=== PATIENT | female | born 1930 | race Caucasian/White ===

== ENCOUNTER → 2016-04-06 | Outpatient (CLI) | payer MEDICARE ==
[2015-01-03 15:00] VITALS: BP 110/63
[~2016-04-06] MED LIST: ASPI81TA2 PO; CANA100T PO; FURO-68 PO; GABA-586 PO; LEVO50TA PO; LISI-377 PO; METO25TA2 PO; SIMV40TA PO; WARF3TAB7 PO
--- NOTE | 2016-04-06 14:32 | KCIC ---
PROCEDURE MR of the right foot HISTORY Right toe cellulitis. Nonhealing ulcer at the distal 3rd toe for over 2 weeks. Diabetic. COMPARISON Radiographs from March 22. No prior MRI. Technique: Standard noncontrast images FINDINGS There is some soft tissue nodularity at the 3rd toe, particularly superiorly, laterally and inferiorly, are mostly surrounding the middle phalanx. This has mostly to low to intermediate T1 signal and intermediate T2 signal. This broadly contacts the middle and distal phalanges which are narrowed and irregular. The appearance suggests chronic external pressure erosion. There is not much bone marrow edema. The overall appearance of these changes at the 3rd toe suggest a chronic process. If the patient is infected, certainly acute and/or chronic osteomyelitis is a possibility. The DIP joint itself is poorly defined and may be disrupted. Note there is similar soft tissue nodularity surrounding the 1st toe particularly surrounding the IP joint. These demonstrate a similar appearance with isointense T1 signal and isodose mildly hyperintense T2 signal. There is deformity and irregularity of the shaft and head of proximal phalanx and the base of the distal phalanx, again with a chronic appearance and possible rated 2 chronic external pressure erosion. There is some narrowing of the IP joint itself. Small effusion at the 1st MTP joint. There is no evidence of acute acute disruption of flexor or extensor tendons. No acute sesamoiditis. No abnormal soft tissue fluid collection or drainable abscess. Lisfranc ligament complex is intact as is the tarsometatarsal alignment. There are degenerative changes at the tarsometatarsal joints compatible with primary osteoarthritis. There is heterogeneous bone marrow signal within the base and proximal shaft of the 5th metatarsal small better defined area of low T1 signal at the subchondral base of the 1st metatarsal and a smaller similar focus in a subcortical location at the proximal medial shaft. These have a similar appearance is the phalangeal changes described of in terms of the MR appearance. Much smaller erosion or defect is seen at the distal cuneiforms. Similar as the toes, there is some soft tissue nodularity dorsal to the proximal 5th metatarsal as well as between the proximal 4th and 5th metatarsal. IMPRESSION 1. Soft tissue nodularity about the 3rd and 1st toes, with underlying bone destruction or erosion. Overall the appearance suggests a chronic duration. If there is clinical infection in these areas, than acute and/or chronic osteomyelitis is of leading concern. Otherwise this is nonspecific. Gout could be considered although note it would be unusual to spare the 1st MTP joint. Rheumatoid arthritis could be considered. 2. There is also evidence of some chronic appearing marrow infiltration, erosion or bone destruction at the proximal 5th metatarsal, with some mild soft tissue component along the superior and medial proximal shaft and base, likely of similar etiology as the abnormalities at the 1st and 3rd toes. Electronically signed by: Gerardo Herrera MD (Apr 06, 2016 14:31:28)
== END | disposition home or self-care (01) ==
LOC: KCIC MRI 09:56
PROVIDERS: ATTEND Family Medicine
DX: L03.031 Cellulitis of right toe (principal); E11.8 Type 2 diabetes mellitus with unspecified complications
CPT/HCPCS: 73718

== ENCOUNTER 2018-07-08 13:45 | Inpatient (IN) | payer MEDICARE ==
[~2018-07-08] VITALS: Ht 167.6 cm; Wt 81.7 kg
[~2018-07-08 13:45] MED LIST changes: +ASPI-630 PO; -ASPI81TA2 PO; -GABA-586 PO; +GABA300C18 PO; +WARF3TAB50 PO; -WARF3TAB7 PO
--- NOTE | 2018-07-08 16:05 | NUR ---
Pt arrived via stretcher with EMS. Assisted pt to bed. Completed admission assessment. Family at bedside. Call light within reach.
[2018-07-08] MEDS ORDERED: DEXTROSE 50% 25 GM / 50ML DISP.SYRIN. IV PRN (18:30)
[2018-07-08 19:00] VITALS: BP 152/83
[2018-07-08] MEDS ORDERED: ALLO100T PO (19:28)
[2018-07-08] MEDS ORDERED: LACT1CAP2 PO (19:28)
[2018-07-08] MEDS ORDERED: INSU100I13 SQ (19:28)
[2018-07-08] MEDS ORDERED: LATA7.5D OP (19:28)
[2018-07-08] MEDS ORDERED: METO-239 PO (19:28)
[2018-07-08] MEDS ORDERED: TIMO10DR5 EACHEYE (19:28)
[2018-07-08] MEDS ORDERED: LINA5TAB PO (19:28)
[2018-07-08] MEDS: IV NORMAL SALINE 1000ML BAG 1,000 ML IV SCH (19:51)
[2018-07-08] MEDS: MEROPENEM 500 MG in IV NORMAL SALINE 50ML 50 ML IV SCH (20:56)
[2018-07-08] MEDS: GABAPENTIN 300 MG CAPSULE. PO SCH (20:57)
[2018-07-08] MEDS: LACTOBACILLUS RHAMNOSUS GG 1 CAPSULE. PO SCH (20:57)
[2018-07-08] MEDS: ACETAMINOPHEN 325 MG TABLET. PO PRN (20:58)
[2018-07-08] MEDS: LATANOPROST 0.005% OPHTH SOLUTION 2.5ML BOTTLE. OU SCH (20:59)
[2018-07-08] MEDS: TIMOLOL 0.5% OPHTH SOLUTION 5ML BOTTLE. OU SCH ×2 (20:59→21:00)
[2018-07-08] MEDS: INSULIN GLARGINE 300 UNITS/3 ML INSULN.PEN. SQ SCH (21:13)
[2018-07-08 23:00] VITALS: BP 130/63
--- NOTE | 2018-07-09 01:28 | NUR ---
Purewick external catheter placed at this time, pt tolerated well and will continue to monitor.
[2018-07-09 03:00] VITALS: BP 149/84
[2018-07-09] MEDS: ACETAMINOPHEN 325 MG TABLET. PO PRN ×2 (05:49→21:12)
[2018-07-09] MEDS: LEVOTHYROXINE 50 MCG TABLET PO SCH (05:49)
[2018-07-09 07:00] VITALS: BP 132/74
[2018-07-09 07:52] LABS: BASO % 0 % (0-3); EOS # 0.2 x10^3/uL (0.0-0.7); EOS % 2 % (0-3); HEMATOCRIT 37.2 % (36.0-47.0); HEMOGLOBIN 12.1 g/dL (12.0-15.5); LYMPH # 1.2 x10^3/uL (1.0-4.8); LYMPH % 12 % (24-48); MEAN CORPUSCULAR HEMOGLOBIN 33 pg (25-35); MEAN CORPUSCULAR HGB CONC 32 g/dL (31-37); MEAN CORPUSCULAR VOLUME 101 fL (79-100); MONO # 1.2 x10^3/uL (0.0-1.1); MONO % 12 % (0-9); NEUT # 7.4 x10^3uL (1.8-7.7); NEUT % 74 % (31-73); PLATELET COUNT 222 x10^3/uL (140-400); RED BLOOD COUNT 3.68 x10^6/uL (3.50-5.40); RED CELL DISTRIBUTION WIDTH 14.3 % (11.5-14.5); WHITE BLOOD COUNT 10.1 x10^3/uL (4.0-11.0)
[2018-07-09 07:59] LABS: PROTHROMBIN TIME PATIENT 17.5 SEC (11.7-14.0)
[2018-07-09] MEDS: INSULIN LISPRO 300 UNITS/3 ML INSULN.PEN. SQ SCH ×3 (08:00→17:00)
[2018-07-09 08:22] LABS: ALBUMIN 1.5 g/dL (3.4-5.0); ALBUMIN/GLOBULIN RATIO 0.4 (1.0-1.7); CALCIUM 10.6 mg/dL (8.5-10.1); CREATININE 1.6 mg/dL (0.6-1.0); GFR 30.4; POTASSIUM 4.1 mmol/L (3.5-5.1); TOTAL BILIRUBIN 0.8 mg/dL (0.2-1.0); TOTAL PROTEIN 5.7 g/dL (6.4-8.2)
--- NOTE | 2018-07-09 09:46 | PDOC2 ---
CONSULT Date of Consult Date of Consult DATE: 07/09/18 TIME: 09:35 Reason for consultation: High calcium Consult: Hematology oncology, Dr. Chuck Judd History of present illness: The patient is an 88-year-old female, she was admitted for high calcium, labs were done elsewhere prior, appears this is chronic, worsened due to hyperparathyroidism, with associated parathyroid adenoma that has been on observation, it is moderate, to 10.6, however corrects to higher with low albumin, surgery has been consulted as well. Past medical history: Hyperparathyroid with parathyroid adenoma and hypercalcemia Diabetes mellitus 2 Coronary artery disease A. fib on warfarin Obesity Right bundle branch block Hypertension Hyperlipidemia Hip fracture Osteoporosis Hearing loss Vitamin D deficiency History of pneumonia Glaucoma Prior UTI Gout Past surgical history: Hysterectomy Left glaucoma surgery Colonoscopy Allergies: Penicillin and sulfa Medications: See attached list Social history: No tobacco or alcohol or drugs, lives with her daughter Family history: Diabetes, heart disease, stroke Review of systems: urinary incontinence, bruising, otherwise 10 point review of systems negative for me this am Physical exam: Vitals reviewed Gen.: Elderly female in no acute distress HEENT: mucous membranes moist, head normocephalic atraumatic Neck: Supple, no lymphadenopathy Lymph nodes: No palpable lymphadenopathy neck or axilla Lungs: Breathing comfortably, w/o respiratory distress Abdomen: Soft, nontender, nondistended Extremities: No cyanosis or signif edema Skin: No obvious rashes or skin breakdown on limited exam, bruising Neuro: Alert, sl speech latency Psych: Normal mood and affect Lab reviewed: White count 10.1, hemoglobin 12.1, platelets 222, MCV of 101 Parathyroid hormone elevated in December 2014 at 2.4 Rads reviewed: No recent imaging here, prior imaging showed right greater trochanter fracture in the past Case discussed with: Patient, records reviewed in [facility] and [facility] as available, including labs and radiology as available, please see note for summary details. Assessment and Plan: She is an 88-year-old female with hypercalcemia and hyperparathyroidism Hyperparathyroidism with prior parathyroid adenoma: General surgery consultation pending, would consider definitive therapy due to ongoing issues Hypercalcemia: If she does not receive surgery for hyperparathyroidism could consider IV bisphosphonate however that could result in long-term hypocalcemia if she gets surgery so we'll hold off at the moment, do not think significant wo rkup for cancer necessary at this point in time since she does have other causes for hypercalcemia however we will order an SPEP with KHURRAM due to slight macrocytosis and the hypercalcemia, if elevated levels of calcium persist after treatment of hyperparathyroidism could consider further workup as needed (i.e. ct scans) Knee arthritis: Ortho consult pending Urinary retention: Per others Disposition: After continued clinical improvement Thank you kindly for this consultation, and please don't hesitate to call with any further questions, I will be returning on Saturday but am available in the interim by phone as needed. Current Medications Current Medications Current Medications Sodium Chloride 1,000 ml @ 50 mls/hr Q20H IV Last administered on 07/08/18 19:51; Start 07/08/18 at 18:00 Dextrose (Dextrose 50%-Water Syringe) 12.5 gm PRN Q15MIN PRN IV SEE COMMENTS; Start 07/08/18 at 18:30 Allopurinol (Zyloprim) 100 mg DAILY PO ; Start 07/09/18 at 09:00 Gabapentin (Neurontin) 300 mg TID PO Last administered on 07/08/18at 20:57; Start 07/08/18 at 21:00 Insulin Glargine (Lantus) 20 units QHS SQ Last administered on 07/08/18at 21:13; Start 07/08/18 at 21:00 Linagliptin (Tradjenta) 5 mg DAILY PO ; Start 07/09/18 at 09:00 Metoprolol Succinate (Toprol Xl) 50 mg DAILY PO ; Start 07/09/18 at 09:00 Lactobacillus Rhamnosus (Culturelle) 1 cap BID PO Last administered on 07/08/18at 20:57; Start 07/08/18 at 21:00 Latanoprost (Xalatan) 1 drop QHS OU Last administered on 07/08/18 20:59; Start 07/08/18 at 21:00 Levothyroxine Sodium (Synthroid) 50 mcg DAILY06 PO Last administered on 07/09/18 05:49; Start 07/09/18 at 06:00 Simvastatin (Zocor) 40 mg DAILY PO ; Start 07/09/18 at 09:00 Timolol Maleate (Timoptic 0.5% Oph) 1 drop BID OU Last administered on 07/08/18 20:59; Start 07/08/18 at 20:45 Meropenem 500 mg/ Sodium Chloride 50 ml @ 100 mls/hr Q12HR IV Last administered on 07/08/18at 20:56; Start 07/08/18 at 21:00 Acetaminophen (Tylenol) 650 mg PRN Q4HRS PRN PO MILD PAIN / TEMP Last administered on 07/09/18at 05:49; Start 07/08/18 at 20:45 Insulin Human Lispro (HumaLOG) 0-5 UNITS TIDWMEALS SQ ; Start 07/09/18 at 08:00 Active Scripts Active Reported Metoprolol Succinate ( Xl ) (Metoprolol Succinate) 25 Mg Tab.er.24h 2 Tab PO DAILY Tradjenta (Linagliptin) 5 Mg Tablet 5 Mg PO DAILY Latanoprost 0.005% Eye Drop (Latanoprost/Pf) 7.5 Ml Drops 7.5 Ml OP QHS Acidophilus (Lactobacillus Acidophilus) 1 Each Capsule 1 Each PO BID Lantus Solostar (Insulin Glargine,Hum.rec.anlog) 100 Unit/1 Ml Insuln.pen 20 Unit SQ QHS Timoptic 0.5% (Timolol Maleate) 10 Ml Drops 1 Drop EACHEYE BID Allopurinol 100 Mg Tablet 1 Tab PO DAILY Warfarin Sodium 3 Mg Tablet 1 Tab PO DAILY Zocor (Simvastatin) 40 Mg Tablet 1 Tab PO DAILY Synthroid (Levothyroxine Sodium) 50 Mcg Tablet 1 Tab PO DAILY Gabapentin (Gabapentin) 300 Mg Capsule 1 Cap PO TID Allergies Allergies: Coded Allergies: Penicillins (Verified Allergy, Intermediate, 01/02/15) Sulfa (Sulfonamide Antibiotics) (Verified Allergy, Intermediate, 01/02/15) Vitals VITALS Vital Signs Date Time Temp Pulse Resp B/P (MAP) Pulse Ox O2 Delivery O2 Flow Rate FiO2 07/09/18 07:00 98.0 80 17 132/74 (93) 98 Room Air 98.0 Labs Labs Laboratory Tests Test 07/08/18 16:23 07/08/18 20:34 07/09/18 07:11 07/09/18 07:38 Glucose (Fingerstick) 191 mg/dL (70-99) 146 mg/dL (70-99) 65 mg/dL (70-99) White Blood Count 10.1 x10^3/uL (4.0-11.0) Red Blood Count 3.68 x10^6/uL (3.50-5.40) Hemoglobin 12.1 g/dL (12.0-15.5) Hematocrit 37.2 % (36.0-47.0) Mean Corpuscular Volume 101 fL (79-100) Mean Corpuscular Hemoglobin 33 pg (25-35) Mean Corpuscular Hemoglobin Concent 32 g/dL (31-37) Red Cell Distribution Width 14.3 % (11.5-14.5) Platelet Count 222 x10^3/uL (140-400) Neutrophils (%) (Auto) 74 % (31-73) Lymphocytes (%) (Auto) 12 % (24-48) Monocytes (%) (Auto) 12 % (0-9) Eosinophils (%) (Auto) 2 % (0-3) Basophils (%) (Auto) 0 % (0-3) Neutrophils # (Auto) 7.4 x10^3uL (1.8-7.7) Lymphocytes # (Auto) 1.2 x10^3/uL (1.0-4.8) Monocytes # (Auto) 1.2 x10^3/uL (0.0-1.1) Eosinophils # (Auto) 0.2 x10^3/uL (0.0-0.7) Basophils # (Auto) 0.0 x10^3/uL (0.0-0.2) Prothrombin Time 17.5 SEC (11.7-14.0) Prothromb Time International Ratio 1.5 (0.8-1.1) Sodium Level 138 mmol/L (136-145) Potassium Level 4.1 mmol/L (3.5-5.1) Chloride Level 108 mmol/L (98-107) Carbon Dioxide Level 20 mmol/L (21-32) Anion Gap 10 (6-14) Blood Urea Nitrogen 30 mg/dL (7-20) Creatinine 1.6 mg/dL (0.6-1.0) Estimated GFR (Cockcroft-Gault) 30.4 BUN/Creatinine Ratio 19 (6-20) Glucose Level 71 mg/dL (70-99) Calcium Level 10.6 mg/dL (8.5-10.1) Total Bilirubin 0.8 mg/dL (0.2-1.0) Aspartate Amino Transf (AST/SGOT) 177 U/L (15-37) Alanine Aminotransferase (ALT/SGPT) 151 U/L (14-59) Alkaline Phosphatase 116 U/L (46-116) Total Protein 5.7 g/dL (6.4-8.2) Albumin 1.5 g/dL (3.4-5.0) Albumin/Globulin Ratio 0.4 (1.0-1.7) Test 07/09/18 08:20 Glucose (Fingerstick) 103 mg/dL (70-99) Laboratory Tests Test 07/08/18 16:23 07/08/18 20:34 07/09/18 07:11 07/09/18 07:38 Glucose (Fingerstick) 191 mg/dL (70-99) 146 mg/dL (70-99) 65 mg/dL (70-99) White Blood Count 10.1 x10^3/uL (4.0-11.0) Red Blood Count 3.68 x10^6/uL (3.50-5.40) Hemoglobin 12.1 g/dL (12.0-15.5) Hematocrit 37.2 % (36.0-47.0) Mean Corpuscular Volume 101 fL (79-100) Mean Corpuscular Hemoglobin 33 pg (25-35) Mean Corpuscular Hemoglobin Concent 32 g/dL (31-37) Red Cell Distribution Width 14.3 % (11.5-14.5) Platelet Count 222 x10^3/uL (140-400) Neutrophils (%) (Auto) 74 % (31-73) Lymphocytes (%) (Auto) 12 % (24-48) Monocytes (%) (Auto) 12 % (0-9) Eosinophils (%) (Auto) 2 % (0-3) Basophils (%) (Auto) 0 % (0-3) Neutrophils # (Auto) 7.4 x10^3uL (1.8-7.7) Lymphocytes # (Auto) 1.2 x10^3/uL (1.0-4.8) Monocytes # (Auto) 1.2 x10^3/uL (0.0-1.1) Eosinophils # (Auto) 0.2 x10^3/uL (0.0-0.7) Basophils # (Auto) 0.0 x10^3/uL (0.0-0.2) Prothrombin Time 17.5 SEC (11.7-14.0) Prothromb Time International Ratio 1.5 (0.8-1.1) Sodium Level 138 mmol/L (136-145) Potassium Level 4.1 mmol/L (3.5-5.1) Chloride Level 108 mmol/L (98-107) Carbon Dioxide Level 20 mmol/L (21-32) Anion Gap 10 (6-14) Blood Urea Nitrogen 30 mg/dL (7-20) Creatinine 1.6 mg/dL (0.6-1.0) Estimated GFR (Cockcroft-Gault) 30.4 BUN/Creatinine Ratio 19 (6-20) Glucose Level 71 mg/dL (70-99) Calcium Level 10.6 mg/dL (8.5-10.1) Total Bilirubin 0.8 mg/dL (0.2-1.0) Aspartate Amino Transf (AST/SGOT) 177 U/L (15-37) Alanine Aminotransferase (ALT/SGPT) 151 U/L (14-59) Alkaline Phosphatase 116 U/L (46-116) Total Protein 5.7 g/dL (6.4-8.2) Albumin 1.5 g/dL (3.4-5.0) Albumin/Globulin Ratio 0.4 (1.0-1.7) Test 07/09/18 08:20 Glucose (Fingerstick) 103 mg/dL (70-99) CHUCK JUDD MD July 09, 2018 09:46
--- NOTE | 2018-07-09 09:47 | PDOC2 ---
CONSULT Date of Consult Date of Consult DATE: 07/09/18 TIME: 09:44 Reason for Consult Reason for Consult: Elevated parathyroid hormone and hypercalcemia Referring Physician Referring Physician: Clement Identification/Chief Complaint Chief Complaint Fear of falling Source Source: Chart review, Patient History of Present Illness Reason for Visit: Patient is an 88-year-old female who fell at home was admitted to the hospital with initial complaints of right knee pain. She had been in the hospital month ago she is uncertain as to why it at that time she had mildly elevated calcium level at 10.2 but markedly elevated parathyroid hormone at 353. She currently is resting comfortably in bed but is a poor historian. She denies any pain. Past Medical History Cardiovascular: HTN Pulmonary: No pertinent hx GI: No pertinent hx Heme/Onc: No pertinent hx Hepatobiliary: No pertinent hx Psych: No pertinent hx Musculoskeletal: Other (osteoporosis) Rheumatologic: No pertinent hx Infectious disease: No pertinent hx ENT: No pertinent hx Renal/: Chronic renal insuff Endocrine: Hyperparathyroidism, Osteoporosis Dermatology: No pertinent hx Family History Family History: No Significant Social History No ALCOHOL: none Drugs: None Lives: Alone Current Medications Current Medications Current Medications Sodium Chloride 1,000 ml @ 50 mls/hr Q20H IV Last administered on 07/08/18at 19:51; Start 07/08/18 at 18:00 Dextrose (Dextrose 50%-Water Syringe) 12.5 gm PRN Q15MIN PRN IV SEE COMMENTS; Start 07/08/18 at 18:30 Allopurinol (Zyloprim) 100 mg DAILY PO ; Start 07/09/18 at 09:00 Gabapentin (Neurontin) 300 mg TID PO Last administered on 07/08/18at 20:57; Start 07/08/18 at 21:00 Insulin Glargine (Lantus) 20 units QHS SQ Last administered on 07/08/18at 21:13; Start 07/08/18 at 21:00 Linagliptin (Tradjenta) 5 mg DAILY PO ; Start 07/09/18 at 09:00 Metoprolol Succinate (Toprol Xl) 50 mg DAILY PO ; Start 07/09/18 at 09:00 Lactobacillus Rhamnosus (Culturelle) 1 cap BID PO Last administered on 07/08/18at 20:57; Start 07/08/18 at 21:00 Latanoprost (Xalatan) 1 drop QHS OU Last administered on 07/08/18at 20:59; Start 07/08/18 at 21:00 Levothyroxine Sodium (Synthroid) 50 mcg DAILY06 PO Last administered on 07/09/18at 05:49; Start 07/09/18 at 06:00 Simvastatin (Zocor) 40 mg DAILY PO ; Start 07/09/18 at 09:00 Timolol Maleate (Timoptic 0.5% Ophth) 1 drop BID OU Last administered on 07/08/18at 20:59; Start 07/08/18 at 20:45 Meropenem 500 mg/ Sodium Chloride 50 ml @ 100 mls/hr Q12HR IV Last administered on 07/08/18at 20:56; Start 07/08/18 at 21:00 Acetaminophen (Tylenol) 650 mg PRN Q4HRS PRN PO MILD PAIN / TEMP Last administered on 07/09/18at 05:49; Start 07/08/18 at 20:45 Insulin Human Lispro (HumaLOG) 0-5 UNITS TIDWMEALS SQ ; Start 07/09/18 at 08:00 Active Scripts Active Reported Metoprolol Succinate ( Xl ) (Metoprolol Succinate) 25 Mg Tab.er.24h 2 Tab PO DA [place] Tradjenta (Linagliptin) 5 Mg Tablet 5 Mg PO DAILY Latanoprost 0.005% Eye Drop (Latanoprost/Pf) 7.5 Ml Drops 7.5 Ml OP QHS Acidophilus (Lactobacillus Acidophilus) 1 Each Capsule 1 Each PO BID Lantus Solostar (Insulin Glargine,Hum.rec.anlog) 100 Unit/1 Ml Insuln.pen 20 Unit SQ QHS Timoptic 0.5% (Timolol Maleate) 10 Ml Drops 1 Drop EACHEYE BID Allopurinol 100 Mg Tablet 1 Tab PO DAILY Warfarin Sodium 3 Mg Tablet 1 Tab PO DAILY Zocor (Simvastatin) 40 Mg Tablet 1 Tab PO DAILY Synthroid (Levothyroxine Sodium) 50 Mcg Tablet 1 Tab PO DAILY Gabapentin (Gabapentin) 300 Mg Capsule 1 Cap PO TID Allergies Allergies: Coded Allergies: Penicillins (Verified Allergy, Intermediate, 01/02/15) Sulfa (Sulfonamide Antibiotics) (Verified Allergy, Intermediate, 01/02/15) Physical Exam General: Alert, Cooperative, mild distress HEENT: Atraumatic, PERRLA, EOMI Lungs: Clear to auscultation, Normal air movement Heart: Regular rate, No murmurs Abdomen: Normal bowel sounds, Soft, No tenderness Extremities: No edema Skin: No significant lesion Neuro: Normal speech Vitals VITALS Vital Signs Date Time Temp Pulse Resp B/P (MAP) Pulse Ox O2 Delivery O2 Flow Rate FiO2 07/09/18 07:00 98.0 80 17 132/74 (93) 98 Room Air 98.0 Labs Labs Laboratory Tests Test 07/08/18 16:23 07/08/18 20:34 07/09/18 07:11 07/09/18 07:38 Glucose (Fingerstick) 191 mg/dL (70-99) 146 mg/dL (70-99) 65 mg/dL (70-99) White Blood Count 10.1 x10^3/uL (4.0-11.0) Red Blood Count 3.68 x10^6/uL (3.50-5.40) Hemoglobin 12.1 g/dL (12.0-15.5) Hematocrit 37.2 % (36.0-47.0) Mean Corpuscular Volume 101 fL (79-100) Mean Corpuscular Hemoglobin 33 pg (25-35) Mean Corpuscular Hemoglobin Concent 32 g/dL (31-37) Red Cell Distribution Width 14.3 % (11.5-14.5) Platelet Count 222 x10^3/uL (140-400) Neutrophils (%) (Auto) 74 % (31-73) Lymphocytes (%) (Auto) 12 % (24-48) Monocytes (%) (Auto) 12 % (0-9) Eosinophils (%) (Auto) 2 % (0-3) Basophils (%) (Auto) 0 % (0-3) Neutrophils # (Auto) 7.4 x10^3uL (1.8-7.7) Lymphocytes # (Auto) 1.2 x10^3/uL (1.0-4.8) Monocytes # (Auto) 1.2 x10^3/uL (0.0-1.1) Eosinophils # (Auto) 0.2 x10^3/uL (0.0-0.7) Basophils # (Auto) 0.0 x10^3/uL (0.0-0.2) Prothrombin Time 17.5 SEC (11.7-14.0) Prothromb Time International Ratio 1.5 (0.8-1.1) Sodium Level 138 mmol/L (136-145) Potassium Level 4.1 mmol/L (3.5-5.1) Chloride Level 108 mmol/L (98-107) Carbon Dioxide Level 20 mmol/L (21-32) Anion Gap 10 (6-14) Blood Urea Nitrogen 30 mg/dL (7-20) Creatinine 1.6 mg/dL (0.6-1.0) Estimated GFR (Cockcroft-Gault) 30.4 BUN/Creatinine Ratio 19 (6-20) Glucose Level 71 mg/dL (70-99) Calcium Level 10.6 mg/dL (8.5-10.1) Total Bilirubin 0.8 mg/dL (0.2-1.0) Aspartate Amino Transf (AST/SGOT) 177 U/L (15-37) Alanine Aminotransferase (ALT/SGPT) 151 U/L (14-59) Alkaline Phosphatase 116 U/L (46-116) Total Protein 5.7 g/dL (6.4-8.2) Albumin 1.5 g/dL (3.4-5.0) Albumin/Globulin Ratio 0.4 (1.0-1.7) Test 07/09/18 08:20 Glucose (Fingerstick) 103 mg/dL (70-99) Laboratory Tests Test 07/08/18 16:23 07/08/18 20:34 07/09/18 07:11 07/09/18 07:38 Glucose (Fingerstick) 191 mg/dL (70-99) 146 mg/dL (70-99) 65 mg/dL (70-99) White Blood Count 10.1 x10^3/uL (4.0-11.0) Red Blood Count 3.68 x10^6/uL (3.50-5.40) Hemoglobin 12.1 g/dL (12.0-15.5) Hematocrit 37.2 % (36.0-47.0) Mean Corpuscular Volume 101 fL (79-100) Mean Corpuscular Hemoglobin 33 pg (25-35) Mean Corpuscular Hemoglobin Concent 32 g/dL (31-37) Red Cell Distribution Width 14.3 % (11.5-14.5) Platelet Count 222 x10^3/uL (140-400) Neutrophils (%) (Auto) 74 % (31-73) Lymphocytes (%) (Auto) 12 % (24-48) Monocytes (%) (Auto) 12 % (0-9) Eosinophils (%) (Auto) 2 % (0-3) Basophils (%) (Auto) 0 % (0-3) Neutrophils # (Auto) 7.4 x10^3uL (1.8-7.7) Lymphocytes # (Auto) 1.2 x10^3/uL (1.0-4.8) Monocytes # (Auto) 1.2 x10^3/uL (0.0-1.1) Eosinophils # (Auto) 0.2 x10^3/uL (0.0-0.7) Basophils # (Auto) 0.0 x10^3/uL (0.0-0.2) Prothrombin Time 17.5 SEC (11.7-14.0) Prothromb Time International Ratio 1.5 (0.8-1.1) Sodium Level 138 mmol/L (136-145) Potassium Level 4.1 mmol/L (3.5-5.1) Chloride Level 108 mmol/L (98-107) Carbon Dioxide Level 20 mmol/L (21-32) Anion Gap 10 (6-14) Blood Urea Nitrogen 30 mg/dL (7-20) Creatinine 1.6 mg/dL (0.6-1.0) Estimated GFR (Cockcroft-Gault) 30.4 BUN/Creatinine Ratio 19 (6-20) Glucose Level 71 mg/dL (70-99) Calcium Level 10.6 mg/dL (8.5-10.1) Total Bilirubin 0.8 mg/dL (0.2-1.0) Aspartate Amino Transf (AST/SGOT) 177 U/L (15-37) Alanine Aminotransferase (ALT/SGPT) 151 U/L (14-59) Alkaline Phosphatase 116 U/L (46-116) Total Protein 5.7 g/dL (6.4-8.2) Albumin 1.5 g/dL (3.4-5.0) Albumin/Globulin Ratio 0.4 (1.0-1.7) Test 07/09/18 08:20 Glucose (Fingerstick) 103 mg/dL (70-99) Assessment/Plan Assessment/Plan Elevated parathyroid hormone mildly elevated calcium will obtain a ultrasound of the neck for evaluation of parathyroid mass. We'll also likely need a sestamibi scan after ultrasound will continue to follow MILADYS WALLER MD July 09, 2018 09:47
[2018-07-09] MEDS: MEROPENEM 500 MG in IV NORMAL SALINE 50ML 50 ML IV SCH (09:50)
[2018-07-09] MEDS: ALLOPURINOL 100 MG TABLET. PO SCH (09:51)
[2018-07-09] MEDS: LACTOBACILLUS RHAMNOSUS GG 1 CAPSULE. PO SCH ×2 (09:51→21:11)
[2018-07-09] MEDS: TIMOLOL 0.5% OPHTH SOLUTION 5ML BOTTLE. OU SCH ×2 (09:51→21:12)
[2018-07-09] MEDS: LINAGLIPTIN 5 MG TABLET PO SCH (09:51)
[2018-07-09] MEDS: SIMVASTATIN 40 MG TABLET. PO SCH (09:51)
[2018-07-09] MEDS: GABAPENTIN 300 MG CAPSULE. PO SCH ×3 (09:51→21:12)
[2018-07-09] MEDS: METOPROLOL SUCC 24HR ER 25 MG TAB.ER.24H. PO SCH (09:51)
--- NOTE | 2018-07-09 10:17 | NUR ---
SW following for discharge planning. Discussed with RN, pt is from home with family. Surgery following. SW will continue to follow when plan of care is established.
[2018-07-09 11:00] VITALS: BP 122/70
--- NOTE | 2018-07-09 12:18 | RAD ---
Thyroid ultrasound, 07/09/2018: HISTORY: Hypercalcemia, looking for parathyroid mass The right lobe of the gland measures 4.3 x 1.7 x 1.3 cm while the left lobe of the liver measures 4.1 x 1.5 x 1.4 cm. The thyroid echo pattern is heterogeneous. A 5 mm slightly hypoechoic nodule is noted anteriorly in the midportion of the right lobe of the gland. Its margins are smooth. No internal calcifications are seen. The sonographic features are nonspecific. No other thyroid nodule is seen. A 2.5 x 2.1 x 1.7 cm hypoechoic nodule is noted along the lower pole of the right lobe of the gland. This cannot be clearly from the thyroid gland but the configuration suggests that it is more likely extrinsic rather than arising from the thyroid gland. Its margins are smooth. A parathyroid origin is possible. IMPRESSION: Small mass along the inferior margin of the right lobe of the thyroid gland as described above. CT scanning of the neck and possibly a radionuclide parathyroid scan may be useful for further evaluation, if clinically indicated. Electronically signed by: Anastacio Rocha MD (07/09/2018 12:16 PM) [facility]
[2018-07-09 15:00] VITALS: BP 150/89
[2018-07-09] MEDS: IV NORMAL SALINE 1000ML BAG 1,000 ML IV SCH (15:51)
--- NOTE | 2018-07-09 16:20 | HP ---
ADMIT DATE: 07/09/2018 HISTORY OF PRESENT ILLNESS: The patient is an 88-year-old female patient who was brought to the Emergency Room at [facility] with a complaint that she has pain in her left lower extremity. She apparently fell about almost a week ago and has been able to walk with assistance, but Saturday morning, she was unable to walk. Originally, she tried to stand up and ended up falling backwards onto her buttocks causing pain in her right knee joint, that is increased with movement and walking. She was seen in the Emergency Room, was extensively investigated, has had x-ray of her pelvis and right hip, which showed there is no acute osseous injury of the right hip and her right knee showed that she has suprapatellar joint effusion, no fracture or dislocation. She has osteoarthritis with joint space narrowing and osteophytes affecting all 3 compartments. There is also arterial vascular calcification of the thigh and meniscal chondrocalcinosis. She was found also to have other abnormalities in her labs including hyponatremia as well as acute on chronic kidney injury as well as hypercalcemia. We actually diagnosed on her previous admission with primary hyperparathyroidism as her intact PTH was more than 353. She has also severe hypophosphatemia and calcium level at that time almost 13 mg/dL, corrected for albumin, and given she continued to have weakness and inability to walk and possibility of hemarthrosis of her right knee because she was on Coumadin, I actually held her Coumadin, and initially there was also marked leukocytosis; however, so far she was treated with IV meropenem as she was allergic to PENICILLIN; however, her urine culture has been negative for more than four days; therefore, I discontinued meropenem and the patient was transferred to this facility to consult the orthopedic surgeon and general surgeon for possible surgical intervention and parathyroidectomy as well as the oncologist in case she is not a surgical candidate. PAST MEDICAL HISTORY: Significant for type 2 diabetes mellitus, hypertension, hyperlipidemia, and hypothyroidism. She is known to have atrial fibrillation, rate controlled, well anticoagulated, although, I held her Coumadin, has history of gout, has glaucoma of the left eye with difficulty to control intraocular pressure for which she underwent surgery. She has also history of osteomyelitis involving her right fifth digit. PAST SURGICAL HISTORY: Significant for left eye surgery, total abdominal hysterectomy, bilateral salpingo-oophorectomy and appendectomy. ALLERGIES: She is allergic to PENICILLIN AND SULFA DRUGS. FAMILY HISTORY: She has one sister, who is alive and younger, but does not know if she has any medical problem. Her father in his 70s, but she does not know the cause of his and mother was , but she does not know the cause of her . SOCIAL HISTORY: She is , has 2 sons and 1 daughter. She currently lives with her daughter. She never smoked, does not drink alcohol. 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 She was transferred to this facility to continue on following medications: She was on Coumadin 3 mg daily, simvastatin 40 mg daily, metoprolol succinate 25 mg, she takes 2 tablets once a day; gabapentin 300 mg 2 times a day, timolol maleate 0.5% one drop to both eyes twice a day, latanoprost 1 drop to both eyes at bedtime, Lactobacillus acidophilus 1 capsule twice a day, linagliptin 5 mg daily, Lantus insulin 20 units at bedtime, levothyroxine 50 mcg once a day, and allopurinol 100 mg once a day. PHYSICAL EXAMINATION: GENERAL: On examining her today, she looked well and was clearly in no apparent respiratory distress. There is no pallor, jaundice, cyanosis, or thyromegaly. No jugular venous distension. No limb edema. VITAL SIGNS: Her heart rate was 87, blood pressure 122/70, temperature 97.7, respiratory rate 17 and oxygen saturation was 98% on room air. HEAD, EYES. EARS, NOSE AND THROAT: Normocephalic, atraumatic. NECK: Supple. HEART: Showed normal first and second heart sounds with no gallop, rub or murmur. CHEST: Clear to auscultation. No crepitation or rhonchi. ABDOMEN: Distended, soft, nontender. NEUROLOGIC: She is awake, alert, somewhat hard of hearing, otherwise all cranial nerves intact. EXTREMITIES: She moves her upper extremities and left lower extremity without difficulty. She continued to have difficulty moving her right lower extremity. LABORATORY DATA: [place] [address], hemoglobin 12, hematocrit 37, MCV 101 and platelet count of 222,000. Her chemistry showed a serum sodium 138, potassium 4.1, chloride 108, bicarbonate 20, anion gap 10, BUN 30, creatinine 1.6, and estimated GFR was 30 mL per minute. Her glucose was 71. Her calcium was 10.6. Total bilirubin and alkaline phosphatase were normal. AST, ALT is slightly elevated. Total protein was 5.7, albumin was 1.5. Her prothrombin time was 17.5 and INR 1.5. So, this is an 88-year-old female patient who was transferred from [facility]. She was admitted with fall and pain, difficulty walking. The pain is mostly in her right lower extremity, mostly around her right knee. X-rays and CT scan did not show any fracture. She has a fusion of her right knee as well as chondrocalcinosis and severe osteoarthritis of all the 3 compartments. She was also admitted with hypercalcemia, hyponatremia, acute on chronic kidney injury. Her sodium has improved as well as her kidney function is back to her baseline from 2.4 to 1.6. Calcium continued to be high. Her intact PTH was 353. I did consult the orthopedic surgeon, general surgeon as well as the oncologist. ANOOP RANDHAWA MD DR: SHUBHAM/luciano JOB#: [id number] / [id number]
[2018-07-09] MEDS ORDERED: traMADol 50 MG TABLET PO PRN (17:30)
[2018-07-09 19:00] VITALS: BP 125/53
[2018-07-09] MEDS: LATANOPROST 0.005% OPHTH SOLUTION 2.5ML BOTTLE. OU SCH (21:00)
[2018-07-09] MEDS: INSULIN GLARGINE 300 UNITS/3 ML INSULN.PEN. SQ SCH (21:15)
[2018-07-09 23:00] VITALS: BP 145/73
[2018-07-10 03:00] VITALS: BP 139/88
[2018-07-10] MEDS: LEVOTHYROXINE 50 MCG TABLET PO SCH (06:33)
[2018-07-10] MEDS: ACETAMINOPHEN 325 MG TABLET. PO PRN (06:33)
[2018-07-10 07:00] VITALS: BP 129/85
[2018-07-10] MEDS: ALLOPURINOL 100 MG TABLET. PO SCH (08:27)
[2018-07-10] MEDS: LACTOBACILLUS RHAMNOSUS GG 1 CAPSULE. PO SCH ×2 (08:27→20:47)
[2018-07-10] MEDS: LINAGLIPTIN 5 MG TABLET PO SCH (08:27)
[2018-07-10] MEDS: SIMVASTATIN 40 MG TABLET. PO SCH (08:27)
[2018-07-10] MEDS: GABAPENTIN 300 MG CAPSULE. PO SCH ×3 (08:27→20:49)
[2018-07-10] MEDS: METOPROLOL SUCC 24HR ER 25 MG TAB.ER.24H. PO SCH (08:28)
[2018-07-10] MEDS: INSULIN LISPRO 300 UNITS/3 ML INSULN.PEN. SQ SCH ×3 (08:34→17:00)
[2018-07-10] MEDS: TIMOLOL 0.5% OPHTH SOLUTION 5ML BOTTLE. OU SCH ×2 (08:36→20:50)
--- NOTE | 2018-07-10 08:45 | PDOC ---
Provider Note Provider Note Consult received yesterday. Sorry haven't been able to see her yet. Was in OR until 9pm last night. Will see at lunchtime today. PRADIP LANDEROS MD July 10, 2018 08:45
--- NOTE | 2018-07-10 08:57 | PDOC ---
JAYLIN SALAZAR LIME VAT TENDER 07/10/18 0857: SURGICAL PROGRESS NOTE Subjective resting currently in bed Vital Signs Vital Signs Date Time Temp Pulse Resp B/P (MAP) Pulse Ox O2 Delivery O2 Flow Rate FiO2 07/10/18 08:28 88 139/88 07/10/18 03:00 98.9 18 96 Room Air 98.9 I&O Intake and Output 07/10/18 06:59 Intake Total 900 ml Output Total 900 ml Balance 0 ml Intake Oral 900 ml Output Urine Total 900 ml # Bowel Movements 1 General: Cooperative Abdomen: Soft, No tenderness Labs Laboratory Tests Test 07/08/18 16:23 07/08/18 20:34 07/09/18 07:11 07/09/18 07:38 Glucose (Fingerstick) 191 mg/dL (70-99) 146 mg/dL (70-99) 65 mg/dL (70-99) White Blood Count 10.1 x10^3/uL (4.0-11.0) Red Blood Count 3.68 x10^6/uL (3.50-5.40) Hemoglobin 12.1 g/dL (12.0-15.5) Hematocrit 37.2 % (36.0-47.0) Mean Corpuscular Volume 101 fL (79-100) Mean Corpuscular Hemoglobin 33 pg (25-35) Mean Corpuscular Hemoglobin Concent 32 g/dL (31-37) Red Cell Distribution Width 14.3 % (11.5-14.5) Platelet Count 222 x10^3/uL (140-400) Neutrophils (%) (Auto) 74 % (31-73) Lymphocytes (%) (Auto) 12 % (24-48) Monocytes (%) (Auto) 12 % (0-9) Eosinophils (%) (Auto) 2 % (0-3) Basophils (%) (Auto) 0 % (0-3) Neutrophils # (Auto) 7.4 x10^3uL (1.8-7.7) Lymphocytes # (Auto) 1.2 x10^3/uL (1.0-4.8) Monocytes # (Auto) 1.2 x10^3/uL (0.0-1.1) Eosinophils # (Auto) 0.2 x10^3/uL (0.0-0.7) Basophils # (Auto) 0.0 x10^3/uL (0.0-0.2) Prothrombin Time 17.5 SEC (11.7-14.0) Prothromb Time International Ratio 1.5 (0.8-1.1) Sodium Level 138 mmol/L (136-145) Potassium Level 4.1 mmol/L (3.5-5.1) Chloride Level 108 mmol/L (98-107) Carbon Dioxide Level 20 mmol/L (21-32) Anion Gap 10 (6-14) Blood Urea Nitrogen 30 mg/dL (7-20) Creatinine 1.6 mg/dL (0.6-1.0) Estimated GFR (Cockcroft-Gault) 30.4 BUN/Creatinine Ratio 19 (6-20) Glucose Level 71 mg/dL (70-99) Calcium Level 10.6 mg/dL (8.5-10.1) Total Bilirubin 0.8 mg/dL (0.2-1.0) Aspartate Amino Transf (AST/SGOT) 177 U/L (15-37) Alanine Aminotransferase (ALT/SGPT) 151 U/L (14-59) Alkaline Phosphatase 116 U/L (46-116) Total Protein 5.7 g/dL (6.4-8.2) Albumin 1.5 g/dL (3.4-5.0) Albumin/Globulin Ratio 0.4 (1.0-1.7) Test 07/09/18 08:20 07/09/18 11:08 07/09/18 21:09 07/10/18 07:58 Glucose (Fingerstick) 103 mg/dL (70-99) 110 mg/dL (70-99) 162 mg/dL (70-99) 152 mg/dL (70-99) Laboratory Tests Test 07/09/18 11:08 07/09/18 21:09 07/10/18 07:58 Glucose (Fingerstick) 110 mg/dL (70-99) 162 mg/dL (70-99) 152 mg/dL (70-99) Problem List sestamibi scan today FU in clinic with MILADYS Wiseman MD 07/10/18 2112: SURGICAL PROGRESS NOTE Assessment/Plan Patient seen and examined by me resting comfortably in bed somewhat confused agree with Nickels assessment and plan reviewed sestamibi scan ultrasound showing what 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 Recommend parathyroidectomy will work on scheduling JAYLIN SALAZAR APRN July 10, 2018 08:57 MILADYS WALLER MD July 10, 2018 17:59
[2018-07-10] MEDS: IV NORMAL SALINE 1000ML BAG 1,000 ML IV SCH (10:00)
[2018-07-10 11:00] VITALS: BP 114/76
--- NOTE | 2018-07-10 12:28 | PDOC2 ---
CONSULT Date of Consult Date of Consult DATE: 07/10/18 TIME: 12:28 Reason for Consult Reason for Consult: Right knee pain, arthritis and effusion Referring Physician Referring Physician: Clement Identification/Chief Complaint Chief Complaint Right knee pain and swelling, difficulty walking Source Source: Chart review, Patient History of Present Illness Reason for Visit: This 88-year-old woman presented to [facility], with knee pain and swelling, and a recent fall. There were no acute fractures on x-rays. She was admitted to the hospital with inability to walk, and she has a right knee effusion. She was unable to give much history to me today, other than that she still has some knee pain and swelling. Past Medical History Cardiovascular: HTN Pulmonary: No pertinent hx GI: No pertinent hx Heme/Onc: No pertinent hx Hepatobiliary: No pertinent hx Psych: No pertinent hx Musculoskeletal: Other (osteoporosis) Rheumatologic: No pertinent hx Infectious disease: No pertinent hx ENT: No pertinent hx Renal/: Chronic renal insuff Endocrine: Hyperparathyroidism, Osteoporosis Dermatology: No pertinent hx Family History Family History: No Significant Social History No ALCOHOL: none Drugs: None Lives: Alone Current Medications Current Medications Current Medications Sodium Chloride 1,000 ml @ 50 mls/hr Q20H IV Last administered on 07/09/18at 15:51; Start 07/08/18 at 18:00 Dextrose (Dextrose 50%-Water Syringe) 12.5 gm PRN Q15MIN PRN IV SEE COMMENTS; Start 07/08/18 at 18:30 Allopurinol (Zyloprim) 100 mg DAILY PO Last administered on 07/10/18at 08:27; Start 07/09/18 at 09:00 Gabapentin (Neurontin) 300 mg TID PO Last administered on 07/10/18at 08:27; Start 07/08/18 at 21:00 Insulin Glargine (Lantus) 20 units QHS SQ Last administered on 07/09/18at 21:15; Start 07/08/18 at 21:00 Linagliptin (Tradjenta) 5 mg DAILY PO Last administered on 07/10/18at 08:27; Start 07/09/18 at 09:00 Metoprolol Succinate (Toprol Xl) 50 mg DAILY PO Last administered on 07/10/18at 08:28; Start 07/09/18 at 09:00 Lactobacillus Rhamnosus (Culturelle) 1 cap BID PO Last administered on 07/10/18 08:27; Start 07/08/18 at 21:00 Latanoprost (Xalatan) 1 drop QHS OU Last administered on 07/09/18at 21:00; Start 07/08/18 at 21:00 Levothyroxine Sodium (Synthroid) 50 mcg DAILY06 PO Last administered on 07/10/18 06:33; Start 07/09/18 at 06:00 Simvastatin (Zocor) 40 mg DAILY PO Last administered on 07/10/18 08:27; Start 07/09/18 at 09:00 Timolol Maleate (Timoptic 0.5% [facility]) 1 drop BID OU Last administered on 9at 08:36; Start 07/08/18 at 20:45 Meropenem 500 mg/ Sodium Chloride 50 ml @ 100 mls/hr Q12HR IV Last administered on 07/09/18at 09:50; Start 07/08/18 at 21:00; Stop 07/09/18 at 15:19; Status DC Acetaminophen (Tylenol) 650 mg PRN Q4HRS PRN PO MILD PAIN / TEMP Last administered on 07/10/18 06:33; Start 07/08/18 at 20:45 Insulin Human Lispro (HumaLOG) 0-5 UNITS TIDWMEALS SQ Last administered on 07/10/18at 08:34; Start 07/09/18 at 08:00 Tramadol HCl (Ultram) 50 mg PRN Q6HRS PRN PO MILD TO MODERATE PAIN Last administered on 07/09/18at 18:28; Start 07/09/18 at 17:30 Bupivacaine HCl (Sensorcaine-Mpf 0.25%) 10 ml 1X ONCE IJ ; Start 07/10/18 at 12:45; Stop 07/10/18 at 12:46 Lidocaine HCl (Lidocaine 1% 20ml Vial) 20 ml 1X ONCE INJ ; Start 07/10/18 at 12:45; Stop 07/10/18 at 12:46 Methylprednisolone Acetate (DEPO-Medrol 80MG VIAL) 80 mg 1X ONCE INT ART ; Start 07/10/18 at 12:45; Stop 07/10/18 at 12:46 Active Scripts Active Reported Metoprolol Succinate ( Xl ) (Metoprolol Succinate) 25 Mg Tab.er.24h 2 Tab PO DAILY Tradjenta (Linagliptin) 5 Mg Tablet 5 Mg PO DAILY Latanoprost 0.005% Eye Drop (Latanoprost/Pf) 7.5 Ml Drops 7.5 Ml OP QHS Acidophilus (Lactobacillus Acidophilus) 1 Each Capsule 1 Each PO BID Lantus Solostar (Insulin Glargine,Hum.rec.anlog) 100 Unit/1 Ml Insuln.pen 20 Unit SQ QHS Timoptic 0.5% (Timolol Maleate) 10 Ml Drops 1 Drop EACHEYE BID Allopurinol 100 Mg Tablet 1 Tab PO DAILY Warfarin Sodium 3 Mg Tablet 1 Tab PO DAILY Zocor (Simvastatin) 40 Mg Tablet 1 Tab PO DAILY Synthroid (Levothyroxine Sodium) 50 Mcg Tablet 1 Tab PO DAILY Gabapentin (Gabapentin) 300 Mg Capsule 1 Cap PO TID Allergies Allergies: Coded Allergies: Penicillins (Verified Allergy, Intermediate, 01/02/15) Sulfa (Sulfonamide Antibiotics) (Verified Allergy, Intermediate, 01/02/15) Physical Exam General: Alert, No acute distress HEENT: Atraumatic Lungs: Normal air movement Heart: Regular rate Extremities: Other (the right knee joint shows a small effusion. There is mild diffuse tenderness. There is slight warmth, more consistent with inflammation than with infection. There is no erythema. There is no drainage or ulcer. The distal neurovascular function shows an indicated toe but good capillary refill. Sensation slightly decreased. Pulses faint.) MUSCULOSKELETAL: Abnormal exam of right (knee joint as above, slight deformity, small effusion, slight warmth.) Vitals VITALS Vital Signs Date Time Temp Pulse Resp B/P (MAP) Pulse Ox O2 Delivery O2 Flow Rate FiO2 07/10/18 11:00 98.6 65 18 114/76 (89) 97 Room Air 98.6 Labs Labs Laboratory Tests Test 07/08/18 16:23 07/08/18 20:34 07/09/18 07:11 07/09/18 07:38 Glucose (Fingerstick) 191 mg/dL (70-99) 146 mg/dL (70-99) 65 mg/dL (70-99) White Blood Count 10.1 x10^3/uL (4.0-11.0) Red Blood Count 3.68 x10^6/uL (3.50-5.40) Hemoglobin 12.1 g/dL (12.0-15.5) Hematocrit 37.2 % (36.0-47.0) Mean Corpuscular Volume 101 fL (79-100) Mean Corpuscular Hemoglobin 33 pg (25-35) Mean Corpuscular Hemoglobin Concent 32 g/dL (31-37) Red Cell Distribution Width 14.3 % (11.5-14.5) Platelet Count 222 x10^3/uL (140-400) Neutrophils (%) (Auto) 74 % (31-73) Lymphocytes (%) (Auto) 12 % (24-48) Monocytes (%) (Auto) 12 % (0-9) Eosinophils (%) (Auto) 2 % (0-3) Basophils (%) (Auto) 0 % (0-3) Neutrophils # (Auto) 7.4 x10^3uL (1.8-7.7) Lymphocytes # (Auto) 1.2 x10^3/uL (1.0-4.8) Monocytes # (Auto) 1.2 x10^3/uL (0.0-1.1) Eosinophils # (Auto) 0.2 x10^3/uL (0.0-0.7) Basophils # (Auto) 0.0 x10^3/uL (0.0-0.2) Prothrombin Time 17.5 SEC (11.7-14.0) Prothromb Time International Ratio 1.5 (0.8-1.1) Sodium Level 138 mmol/L (136-145) Potassium Level 4.1 mmol/L (3.5-5.1) Chloride Level 108 mmol/L (98-107) Carbon Dioxide Level 20 mmol/L (21-32) Anion Gap 10 (6-14) Blood Urea Nitrogen 30 mg/dL (7-20) Creatinine 1.6 mg/dL (0.6-1.0) Estimated GFR (Cockcroft-Gault) 30.4 BUN/Creatinine Ratio 19 (6-20) Glucose Level 71 mg/dL (70-99) Calcium Level 10.6 mg/dL (8.5-10.1) Total Bilirubin 0.8 mg/dL (0.2-1.0) Aspartate Amino Transf (AST/SGOT) 177 U/L (15-37) Alanine Aminotransferase (ALT/SGPT) 151 U/L (14-59) Alkaline Phosphatase 116 U/L (46-116) Total Protein 5.7 g/dL (6.4-8.2) Albumin 1.5 g/dL (3.4-5.0) Albumin/Globulin Ratio 0.4 (1.0-1.7) Test 07/09/18 08:20 07/09/18 11:08 07/09/18 21:09 07/10/18 07:58 Glucose (Fingerstick) 103 mg/dL (70-99) 110 mg/dL (70-99) 162 mg/dL (70-99) 152 mg/dL (70-99) Test 07/10/18 11:55 Glucose (Fingerstick) 138 mg/dL (70-99) Laboratory Tests Test 07/09/18 21:09 07/10/18 07:58 07/10/18 11:55 Glucose (Fingerstick) 162 mg/dL (70-99) 152 mg/dL (70-99) 138 mg/dL (70-99) Images Images Report reviewed, images independently reviewed. Osteoarthritis and chondrocalcinosis. No acute fracture. Assessment/Plan Assessment/Plan Right knee effusion. Right knee chondrocalcinosis. Right knee osteoarthritis. Right knee pain. I recommended aspiration and a cortisone injection. I believe this will help her symptoms. She agrees. PRADIP LANDEROS MD July 10, 2018 12:28
[2018-07-10] MEDS ORDERED: LIDOCAINE 1% Multi-Dose 20 ML VIAL. INJ ONE (12:45)
[2018-07-10] MEDS ORDERED: methylPREDNISolone ACETATE 80 MG/ML VIAL. INT ART ONE (12:45)
[2018-07-10] MEDS ORDERED: BUPIVACAINE MPF 0.25% 10 ML VIAL. IJ ONE (12:45)
[2018-07-10] MEDS ORDERED: BUPIVACAINE MPF 0.25% 10 ML VIAL. ONE (13:00)
[2018-07-10] MEDS ORDERED: methylPREDNISolone ACETATE 80 MG/ML VIAL. ONE (13:00)
--- NOTE | 2018-07-10 13:10 | PDOC4 ---
PROCEDURE Procedure I recommended aspiration and cortisone injection to the right knee because of the knee effusion and osteoarthritis flare. I spoke to Selwyn Webb, the OA, by phone, about consent for "right knee aspiration and cortisone injection". He agreed. Estella SCALES witnessed. A timeout was performed. I prepared the right knee under sterile technique using chlorhexidine swab. Local anesthetic, 3 mL's of 1% lidocaine was used. I aspirated the knee under sterile technique and retrieved 15 mL transparent yellow osteoarthritis synovial fluid. I injected the knee with 80 mg of Depo-Medrol and 8 mL's of 0.25% bupivacaine. She tolerated this well. A Band-Aid was placed. PRADIP LANDEROS MD July 10, 2018 13:10
[2018-07-10 15:00] VITALS: BP 134/88
--- NOTE | 2018-07-10 15:37 | RAD ---
Radionuclide parathyroid scan, 07/10/2018: HISTORY: Hyperparathyroidism Imaging of the lower neck was performed following IV injection of 20 mCi of technetium 99m Cardiolite. There is an asymmetric focus of increased activity in the lower neck on the right which becomes more apparent on the delayed images. This appears to correspond location to the nodule located along the lower pole of the right lobe of the thyroid gland on the recent thyroid ultrasound exam. The findings are compatible with a parathyroid adenoma. IMPRESSION: Abnormal radionuclide uptake in the lower neck on the right as described above, compatible with a parathyroid adenoma. Electronically signed by: Anastacio Rocha MD (07/10/2018 3:35 PM) [facility]
--- NOTE | 2018-07-10 16:08 | NUR ---
VASILIY following for discharge planning. Discussed with RN, pt is from home with daughter. PT/OT recommending SNU, VASILIY met with pt, pt seemed very tired and wasn't sure about anything. VASILIY contacted pt's son, Selwyn, they would like for referral to be sent to [facility]. SW to fax referral tomorrow morning (07/11/18).
[2018-07-10 19:25] VITALS: BP 133/77
[2018-07-10] MEDS: LATANOPROST 0.005% OPHTH SOLUTION 2.5ML BOTTLE. OU SCH (20:50)
[2018-07-10] MEDS: INSULIN GLARGINE 300 UNITS/3 ML INSULN.PEN. SQ SCH (21:01)
--- NOTE | 2018-07-10 21:20 | PN ---
DATE: 07/10/2018 SUBJECTIVE: The patient is resting, slightly propped up in bed, in no apparent respiratory distress. She is definitely more awake, alert and lucid today, does not seem to be confused. She has had her sestamibi scan; however, she has not been seen yet by the orthopedic surgeon nor has she been seen by the physical and occupational therapist. PHYSICAL EXAMINATION: GENERAL: When I saw her, she looked pale, but no jaundice or cyanosed. No lymphadenopathy, no thyromegaly. No jugular venous distension. No lower limb edema. VITAL SIGNS: Her heart rate was 88, blood pressure was 139/88, temperature was 98.4, respiratory rate was 61 and oxygen saturation was 99% on room air. HEAD, EYES, EARS, NOSE AND THROAT: Showed normocephalic, atraumatic. NECK: Supple. HEART: Showed normal first and second sounds. No gallop, rub or murmur. CHEST: Clear to auscultation. No crepitation or rhonchi. ABDOMEN: Distended, soft, nontender. No guarding or rigidity. No organomegaly. All hernial orifices intact. Bowel sounds normal. NEUROLOGIC: She is awake, alert, responding appropriately. All cranial nerves intact. She moves upper extremities and left lower extremity. She continues to have pain and inability to stand or walk because of pain in her right lower extremity, mostly around her knee joint. Her intake and output were incompletely recorded. LABORATORY DATA: She has no lab work done today; however, her blood sugar seems to be well controlled. Her thyroid ultrasound showed that she a small mass along the inferior margin of the right lobe of the thyroid gland. CT scan of the neck and possibly radionuclide parathyroid scan may be useful for further examination if clinically indicated. In fact, she did have her sestamibi scan today. PLAN: To continue with current plan of management. If there are no plans for surgery, we might be able to transfer her tomorrow to [facility] for further rehabilitation, hopefully after the orthopedic surgeon at least inject her knee with steroid. I will add also SCDs for DVT prophylaxis. ANOOP RANDHAWA MD DR: SHUBHAM/luciano JOB#: [id number] / [id number]
[2018-07-10 23:31] VITALS: BP 152/79
[2018-07-11 03:16] VITALS: BP 128/77
[2018-07-11] MEDS: LEVOTHYROXINE 50 MCG TABLET PO SCH (06:00)
[2018-07-11 07:00] VITALS: BP 150/97
[2018-07-11 07:14] LABS: HEMATOCRIT 38.5 % (36.0-47.0); HEMOGLOBIN 12.5 g/dL (12.0-15.5); RED BLOOD COUNT 3.81 x10^6/uL (3.50-5.40); RED CELL DISTRIBUTION WIDTH 14.6 % (11.5-14.5); WHITE BLOOD COUNT 7.5 x10^3/uL (4.0-11.0)
[2018-07-11 07:35] LABS: ALBUMIN 1.7 g/dL (3.4-5.0); ALBUMIN/GLOBULIN RATIO 0.4 (1.0-1.7); CALCIUM 10.8 mg/dL (8.5-10.1); CREATININE 1.4 mg/dL (0.6-1.0); GFR 35.5; TOTAL BILIRUBIN 0.5 mg/dL (0.2-1.0); TOTAL PROTEIN 6.3 g/dL (6.4-8.2)
[2018-07-11 07:40] LABS: POTASSIUM 5.2 mmol/L (3.5-5.1)
--- NOTE | 2018-07-11 08:08 | PDOC ---
SURGICAL PROGRESS NOTE Subjective having breakfast knee injection yesterday Vital Signs Vital Signs Date Time Temp Pulse Resp B/P (MAP) Pulse Ox O2 Delivery O2 Flow Rate FiO2 07/11/18 03:16 98.0 89 16 128/77 (94) 96 Room Air 98.0 I&O Intake and Output0 07/11/18 07:00 Intake Total 360 ml Output Total 600 ml Balance -240 ml Intake Oral 360 ml Output Urine Total 600 ml # Voids 1 General: Alert, Oriented X3, Cooperative, No acute distress Abdomen: Soft, No tenderness Labs Laboratory Tests Test 07/09/18 08:20 07/09/18 11:08 07/09/18 16:34 07/09/18 21:09 Glucose (Fingerstick) 103 mg/dL (70-99) 110 mg/dL (70-99) 92 mg/dL (70-99) 162 mg/dL (70-99) Test 07/10/18 07:58 07/10/18 11:55 07/10/18 16:47 07/10/18 20:54 Glucose (Fingerstick) 152 mg/dL (70-99) 138 mg/dL (70-99) 137 mg/dL (70-99) 203 mg/dL (70-99) Test 07/11/18 06:24 07/11/18 06:26 07/11/18 07:27 White Blood Count 7.5 x10^3/uL (4.0-11.0) Red Blood Count 3.81 x10^6/uL (3.50-5.40) Hemoglobin 12.5 g/dL (12.0-15.5) Hematocrit 38.5 % (36.0-47.0) Mean Corpuscular Volume 101 fL (79-100) Mean Corpuscular Hemoglobin 33 pg (25-35) Mean Corpuscular Hemoglobin Concent 32 g/dL (31-37) Red Cell Distribution Width 14.6 % (11.5-14.5) Platelet Count 272 x10^3/uL (140-400) Sodium Level 135 mmol/L (136-145) Potassium Level 5.2 mmol/L (3.5-5.1) Chloride Level 107 mmol/L (98-107) Carbon Dioxide Level 19 mmol/L (21-32) Anion Gap 9 (6-14) Blood Urea Nitrogen 38 mg/dL (7-20) Creatinine 1.4 mg/dL (0.6-1.0) Estimated GFR (Cockcroft-Gault) 35.5 BUN/Creatinine Ratio 27 (6-20) Glucose Level 200 mg/dL (70-99) Calcium Level 10.8 mg/dL (8.5-10.1) Total Bilirubin 0.5 mg/dL (0.2-1.0) Aspartate Amino Transf (AST/SGOT) 216 U/L (15-37) Alanine Aminotransferase (ALT/SGPT) 268 U/L (14-59) Alkaline Phosphatase 157 U/L (46-116) Total Protein 6.3 g/dL (6.4-8.2) Albumin 1.7 g/dL (3.4-5.0) Albumin/Globulin Ratio 0.4 (1.0-1.7) Glucose (Fingerstick) 179 mg/dL (70-99) Laboratory Tests Test 07/10/18 11:55 07/10/18 16:47 07/10/18 20:54 07/11/18 06:24 Glucose (Fingerstick) 138 mg/dL (70-99) 137 mg/dL (70-99) 203 mg/dL (70-99) White Blood Count 7.5 x10^3/uL (4.0-11.0) Red Blood Count 3.81 x10^6/uL (3.50-5.40) Hemoglobin 12.5 g/dL (12.0-15.5) Hematocrit 38.5 % (36.0-47.0) Mean Corpuscular Volume 101 fL (79-100) Mean Corpuscular Hemoglobin 33 pg (25-35) Mean Corpuscular Hemoglobin Concent 32 g/dL (31-37) Red Cell Distribution Width 14.6 % (11.5-14.5) Platelet Count 272 x10^3/uL (140-400) Test 07/11/18 06:26 07/11/18 07:27 Sodium Level 135 mmol/L (136-145) Potassium Level 5.2 mmol/L (3.5-5.1) Chloride Level 107 mmol/L (98-107) Carbon Dioxide Level 19 mmol/L (21-32) Anion Gap 9 (6-14) Blood Urea Nitrogen 38 mg/dL (7-20) Creatinine 1.4 mg/dL (0.6-1.0) Estimated GFR (Cockcroft-Gault) 35.5 BUN/Creatinine Ratio 27 (6-20) Glucose Level 200 mg/dL (70-99) Calcium Level 10.8 mg/dL (8.5-10.1) Total Bilirubin 0.5 mg/dL (0.2-1.0) Aspartate Amino Transf (AST/SGOT) 216 U/L (15-37) Alanine Aminotransferase (ALT/SGPT) 268 U/L (14-59) Alkaline Phosphatase 157 U/L (46-116) Total Protein 6.3 g/dL (6.4-8.2) Albumin 1.7 g/dL (3.4-5.0) Albumin/Globulin Ratio 0.4 (1.0-1.7) Glucose (Fingerstick) 179 mg/dL (70-99) Assessment/Plan Office will arrange surgical plans and FU with patient JAYLIN SALAZAR APRN July 11, 2018 08:08
[2018-07-11] MEDS: LINAGLIPTIN 5 MG TABLET PO SCH (08:31)
[2018-07-11] MEDS: METOPROLOL SUCC 24HR ER 25 MG TAB.ER.24H. PO SCH (08:32)
[2018-07-11] MEDS: TIMOLOL 0.5% OPHTH SOLUTION 5ML BOTTLE. OU SCH (08:32)
[2018-07-11] MEDS: ALLOPURINOL 100 MG TABLET. PO SCH (08:32)
[2018-07-11] MEDS: GABAPENTIN 300 MG CAPSULE. PO SCH (08:32)
[2018-07-11] MEDS: LACTOBACILLUS RHAMNOSUS GG 1 CAPSULE. PO SCH (08:32)
[2018-07-11] MEDS: INSULIN LISPRO 300 UNITS/3 ML INSULN.PEN. SQ SCH ×2 (08:39→12:15)
--- NOTE | 2018-07-11 08:51 | PDOC ---
SUBJECTIVE Subjective S: doing ok this am, had breakfast O: Gen: elderly female, NAD, resting in bed Psych: pleasant mood and affect Labs: CBC nl, Ca 10.8 w/ Alb 1.7 Rads: PTH adenoma on sestamibi scan, 2.5 cm R on u/s A/P: She is an 88-year-old female with hypercalcemia and hyperparathyroidism Hyperparathyroidism with prior parathyroid adenoma: pending parathyroidectomy w/ surgery Hypercalcemia: If she does not receive surgery for hyperparathyroidism could consider IV bisphosphonate however that could result in long-term hypocalcemia if she gets surgery so we'll hold off at the moment, do not think significant workup for cancer necessary at this point in time since she does have other causes for hypercalcemia however SPEP is pending, due to slight macrocytosis and the hypercalcemia, if elevated levels of calcium persist after treatment of hyperparathyroidism could consider further workup as needed (i.e. ct scans) Knee arthritis: steroid injection per ortho Urinary retention: Per others Disposition: After continued clinical improvement Thank you kindly, and please don't hesitate to call with any further questions. OBJECTIVE Vital Signs Vital Signs Date Time Temp Pulse Resp B/P (MAP) Pulse Ox O2 Delivery O2 Flow Rate FiO2 07/11/18 08:32 88 150/97 07/11/18 07:00 98.2 88 18 150/97 (114) 94 Room Air 98.2 07/11/18 03:16 98.0 89 16 128/77 (94) 96 Room Air 98.0 07/10/18 23:31 97.6 89 18 152/79 (103) 97 Room Air 97.6 07/10/18 20:00 Room Air 07/10/18 19:25 97.8 89 18 133/77 (95) 95 Room Air 97.8 07/10/18 15:00 98.6 89 18 134/88 (103) 98 Room Air 98.6 07/10/18 11:00 98.6 65 18 114/76 (89) 97 Room Air 98.6 I & O Intake and Output 07/11/18 07:00 Intake Total 360 ml Output Total 600 ml Balance -240 ml Intake Oral 360 ml Output Urine Total 600 ml # Voids 1 COMMENT Lab Laboratory Tests Test 07/10/18 11:55 07/10/18 16:47 07/10/18 20:54 07/11/18 06:24 Glucose (Fingerstick) 138 mg/dL (70-99) 137 mg/dL (70-99) 203 mg/dL (70-99) White Blood Count 7.5 x10^3/uL (4.0-11.0) Red Blood Count 3.81 x10^6/uL (3.50-5.40) Hemoglobin 12.5 g/dL (12.0-15.5) Hematocrit 38.5 % (36.0-47.0) Mean Corpuscular Volume 101 fL (79-100) Mean Corpuscular Hemoglobin 33 pg (25-35) Mean Corpuscular Hemoglobin Concent 32 g/dL (31-37) Red Cell Distribution Width 14.6 % (11.5-14.5) Platelet Count 272 x10^3/uL (140-400) Test 07/11/18 06:26 07/11/18 07:27 Sodium Level 135 mmol/L (136-145) Potassium Level 5.2 mmol/L (3.5-5.1) Chloride Level 107 mmol/L (98-107) Carbon Dioxide Level 19 mmol/L (21-32) Anion Gap 9 (6-14) Blood Urea Nitrogen 38 mg/dL (7-20) Creatinine 1.4 mg/dL (0.6-1.0) Estimated GFR (Cockcroft-Gault) 35.5 BUN/Creatinine Ratio 27 (6-20) Glucose Level 200 mg/dL (70-99) Calcium Level 10.8 mg/dL (8.5-10.1) Total Bilirubin 0.5 mg/dL (0.2-1.0) Aspartate Amino Transf (AST/SGOT) 216 U/L (15-37) Alanine Aminotransferase (ALT/SGPT) 268 U/L (14-59) Alkaline Phosphatase 157 U/L (46-116) Total Protein 6.3 g/dL (6.4-8.2) Albumin 1.7 g/dL (3.4-5.0) Albumin/Globulin Ratio 0.4 (1.0-1.7) Glucose (Fingerstick) 179 mg/dL (70-99) CHUCK OCASIO MD July 11, 2018 08:51
--- NOTE | 2018-07-11 09:47 | RAD ---
Portable chest, 07/11/2018: HISTORY: Shortness of breath Comparison is made to a study from 12/31/2014. The heart is mildly enlarged. There is calcific plaquing and tortuosity of the thoracic aorta. The pulmonary vascularity is normal. No pulmonary infiltrate is seen. There is no evidence of pleural fluid. The bony structures are demineralized. IMPRESSION: 1. Mild cardiomegaly and aortic atherosclerosis. 2. No acute infiltrates. Electronically signed by: Anastacio Rocha MD (07/11/2018 9:44 AM) [facility]
[2018-07-11 10:27] LABS: ALBUMIN 1.8 g/dL (3.4-5.0); ALBUMIN/GLOBULIN RATIO 0.4 (1.0-1.7); CALCIUM 11.1 mg/dL (8.5-10.1); CREATININE 1.5 mg/dL (0.6-1.0); GFR 32.8; TOTAL BILIRUBIN 0.5 mg/dL (0.2-1.0); TOTAL PROTEIN 6.3 g/dL (6.4-8.2)
[2018-07-11 10:30] LABS: POTASSIUM 5.2 mmol/L (3.5-5.1)
[2018-07-11 11:00] VITALS: BP 124/74
--- NOTE | 2018-07-11 11:10 | SNU/HH DC ---
DISCHARGE ORDERS DISCHARGE INFORMATION: DISCHARGE DATE: July 11, 2018 FINAL DIAGNOSIS Primary hyperparathyroidism hypercalcemia right knee severe osteoarthritis right knee chondtocalcinosis A/C Kidney injury HTN Atrial fibrillation CONDITION ON DISCHARGE: Stable CODE STATUS: Code Status: Full HALF-WAY: SNF STAY <30 DAYS: Yes POST DISCHARGE ORDERS: ACTIVITY ORDERS: Activity as tolerated WEIGHT BEARING STATUS: Full weight bearing DIET AFTER DISCHARGE: Cardiac WOUND/INCISION CARE: No wound care needed TREATMENT/EQUIPMENT ORDERS: ADAPTIVE EQUIPMENT NEEDED: None, Walker Physical Therapy For: Evalulation/Treatment Occupational Therapy For: Evaluation/Treatment DISCHARGE MEDICATIONS: Home Meds Reported Medications Metoprolol Succinate (METOPROLOL SUCCINATE ( XL )) 25 Mg Tab.er.24h, 2 TAB PO DAILY for HTN , #30 TAB 5 Refills 07/08/18 Linagliptin (TRADJENTA) 5 Mg Tablet, 5 MG PO DAILY for TYPE 2 DIABETES, TAB 07/08/18 Latanoprost/Pf (Latanoprost 0.005% Eye Drop) 7.5 Ml Drops, 7.5 ML OP QHS for med list , DROP 07/08/18 Lactobacillus Acidophilus (ACIDOPHILUS) 1 Each Capsule, 1 EACH PO BID for med list , CAP 07/08/18 Insulin Glargine,Hum.rec.anlog (LANTUS SOLOSTAR) 100 Unit/1 Ml Insuln.pen, 20 UNIT SQ QHS for med list , #15 ML 5 Refills 07/08/18 Timolol Maleate 0.5% (TIMOPTIC 0.5%) 10 Ml Drops, 1 DROP EACHEYE BID for med list, #10 ML 3 Refills 07/08/18 Allopurinol (ALLOPURINOL) 100 Mg Tablet, 1 TAB PO DAILY for med list, #30 TAB 5 Refills 07/08/18 Warfarin Sodium (WARFARIN SODIUM) 3 Mg Tablet, 1 TAB PO DAILY, #30 TAB 5 Refills 12/31/14 Simvastatin (ZOCOR) 40 Mg Tablet, 1 TAB PO DAILY, #90 TAB 1 Refill 12/31/14 Levothyroxine Sodium (SYNTHROID) 50 Mcg Tablet, 1 TAB PO DAILY, #30 TAB 5 Refills 12/31/14 Gabapentin (GABAPENTIN ) 300 Mg Capsule, 1 CAP PO TID, #90 CAP 3 Refills 12/31/14 Discontinued Reported Medications Canagliflozin (INVOKANA) 100 Mg Tablet, 100 MG PO DAILY 12/31/14 Lisinopril (ZESTRIL) 10 Mg Tablet, 1 TAB PO DAILY, #30 TAB 5 Refills 12/31/14 Metoprolol Succinate (TOPROL XL) 25 Mg Tab.er.24h, 1 TAB PO DAILY, #30 TAB 5 Refills 12/31/14 Furosemide (LASIX) 40 Mg Tablet, 40 MG PO BID, TAB 12/31/14 Aspirin (ASPIRIN) 81 Mg Tab.chew, 1 TAB PO DAILY, #30 TAB 3 Refills 12/31/14 ANOOP RANDHAWA MD July 11, 2018 11:10
--- NOTE | 2018-07-11 11:45 | NUR ---
Pt's family at bedside with questions re: pt's d/c today. Contacted ALEJANDRO Wild, she stated office would contact family as OP for possible surgical plans. Family notified, verbalized understanding.
--- NOTE | 2018-07-11 13:55 | NUR ---
SW following for discharge planning. Discussed with RN and Dr. Vaughan, pt has been accepted at [facility] swing bed. Pt discharging to [facility] today by [facility] at 1500. Pt choice and rights letter signed with verbal permission by pt's son, Selwyn - placed on chart. No further SW needs.
--- NOTE | 2018-07-11 14:29 | NUR ---
Attempted report called to [facility] swing bed unit. Joaquin stated nurse would return call. Pt. transferred via WC per transportation service, son at bedside.
[2018-07-11] MEDS ORDERED: WARFARIN 3 MG TABLET. PO SCH (16:00)
--- NOTE | 2018-07-11 18:29 | DS ---
DATE OF DISCHARGE: 07/11/2018 HOSPITAL COURSE: The patient is an 88-year-old female patient who was transferred to [facility] from [facility] with hypercalcemia and primary hyperparathyroidism as well as severe pain and swelling of her right knee joint. She was seen in consultation by the general surgeon. Her ultrasound of the neck showed that she has a small mass along the inferior margin of the right lobe of the thyroid gland that cannot be clearly from the thyroid gland, but the configuration suggests that it is more likely extrinsic rather than arising from the thyroid gland, its margins are smooth, a parathyroid origin is possible. She did have a sestamibi scan, which showed that the patient has abnormal radionuclide uptake in the lower neck of the right, which becomes more apparent in the delayed images. This appears to correspond to the nodule located along the lower pole of the right lobe of the thyroid gland in the recent thyroid ultrasound. The findings are compatible with a parathyroid adenoma. The general surgeon would not operate on her at this time and we will arrange for her to be done at another opportunity and the office will arrange for that. She was seen in consultation by Dr. Mcknight, the orthopedic surgeon who basically aspirated about 15 mL of clear transparent yellow osteoarthritis synovial fluid and injected 80 mg of Depo-Medrol and 8 mL of 0.25 mg bupivacaine. She tolerated the procedure very well and as her pain is much improved, but she is still weak and requires further rehabilitation, a decision was made to transfer her to a swing bed at [facility] to continue the process of rehabilitation. PHYSICAL EXAMINATION: GENERAL: When I examined her this morning, she looked well and was clearly in no apparent respiratory distress, pale, not jaundiced. No cyanosis or thyromegaly. No jugular venous distension. No lower limb edema. VITAL SIGNS: Her heart rate was 88, blood pressure 150/97, temperature was 98.2, respiratory rate was 18 and oxygen saturation was 94%. HEAD, EYES, EARS, NOSE AND THROAT: Showed normocephalic, atraumatic. NECK: Supple. HEART: Showed normal first and second sounds. No gallop, rub or murmur. CHEST: Clear to auscultation. No crepitation or rhonchi. ABDOMEN: Distended, soft, nontender. No guarding or rigidity. No organomegaly. All hernial orifices intact. Bowel sounds normal. NEUROLOGIC: She is awake, alert, responding appropriately. All cranial nerves intact. 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 LABORATORY DATA: Her lab work this morning showed a white cell count of 7500, hemoglobin 12.5, hematocrit 38.5, MCV 101 and platelet count of 272,000. Her serum sodium was 134, potassium 5.2, chloride 104, bicarbonate 19, anion gap of 11, BUN 38, creatinine 1.5, estimated GFR was 32 mL per minute. Her glucose was 222, calcium was 11.1. Total bilirubin is normal. AST, ALT, alkaline phosphatase were normal. Total protein was 6.3, albumin was 1.8. Her most recent prothrombin time was 17.5. DISCHARGE MEDICATIONS: She was discharged to swing bed to continue on allopurinol 100 mg once a day, gabapentin 300 mg 3 times a day. She is on Lantus insulin 20 units at bedtime, Lactobacillus acidophilus 1 twice a day, latanoprost 1 drop to both eyes at bedtime, levothyroxine, Synthroid 50 mcg once a day, linagliptin for Tradjenta 5 mg once a day, metoprolol 50 mg daily, simvastatin for Zocor 40 mg daily, timolol maleate 1 drop to both eyes twice a day and warfarin 3 mg daily. FINAL DISCHARGE DIAGNOSES: 1. Hypercalcemia. 2. Primary hyperparathyroidism. 3. Right knee 3-compartmental severe osteoarthritis. 4. Right knee chondrocalcinosis. 5. Acute on chronic kidney injury. 6. Atrial fibrillation, rate controlled, well anticoagulated. 7. Acute on chronic kidney injury. 8. Hyperkalemia. 9. Deranged liver enzymes. ANOOP RANDHAWA MD DR: SHUBHAM/luciano JOB#: [id number] / [id number]
[2018-07-12] MEDS ORDERED: NON FORMULARY ITEM (Warfarin Sodium 1 TAB) PO SCH (09:00)
[2018-07-14 17:14] LABS: IMMUNOGLOBULIN A 199 mg/dL (64-422); IMMUNOGLOBULIN G 1032 mg/dL (700-1600); IMMUNOGLOBULIN M 23 mg/dL (26-217)
[2018-07-15] MEDS ORDERED: INSU100C SQ (13:01)
[2018-07-15 13:17] LABS: ALBUM 1.8 g/dL (2.9-4.4); ALPHA 1 0.5 g/dL (0.0-0.4); ALPHA 2 1.1 g/dL (0.4-1.0); BETA 0.7 g/dL (0.7-1.3); GAMMA 0.9 g/dL (0.4-1.8); SPEP AG RATIO 0.6 (0.7-1.7)
[2018-07-17] MEDS ORDERED: OXYC1TAB15 PO (12:08)
== END 2018-07-11 14:30 | disposition swing bed (61) | DRG 683 ==
LOC: 4 NORTH 16:34
PROVIDERS: ADMIT Internal Medicine; ATTEND Internal Medicine
PROC: 3E0U33Z Introduction of Anti-inflammatory into Joints, Percutaneous Approach (ICD-10-PCS; principal; 2018-07-10)
PROC: 0S9C3ZZ Drainage of Right Knee Joint, Percutaneous Approach (ICD-10-PCS; 2018-07-10)
PROC: 3E0U3BZ Introduction of Anesthetic Agent into Joints, Percutaneous Approach (ICD-10-PCS; 2018-07-10)
DX: N17.9 Acute kidney failure, unspecified (principal); E87.1 Hypo-osmolality and hyponatremia; M11.261 Other chondrocalcinosis, right knee; M19.90 Unspecified osteoarthritis, unspecified site; E21.0 Primary hyperparathyroidism; R33.9 Retention of urine, unspecified; N18.9 Chronic kidney disease, unspecified; E11.22 Type 2 diabetes mellitus with diabetic chronic kidney disease; I12.9 Hypertensive chronic kidney disease with stage 1 through stage 4 chronic kidney disease, or unspecified chronic kidney disease; D35.1 Benign neoplasm of parathyroid gland; D72.829 Elevated white blood cell count, unspecified; E03.9 Hypothyroidism, unspecified; E78.5 Hyperlipidemia, unspecified; E87.5 Hyperkalemia; M10.9 Gout, unspecified; E66.9 Obesity, unspecified; I25.10 Atherosclerotic heart disease of native coronary artery without angina pectoris; I48.91 Unspecified atrial fibrillation; M17.11 Unilateral primary osteoarthritis, right knee; M81.0 Age-related osteoporosis without current pathological fracture; Z82.3 Family history of stroke; Z83.3 Family history of diabetes mellitus; Z87.01 Personal history of pneumonia (recurrent); Z87.440 Personal history of urinary (tract) infections; Z88.0 Allergy status to penicillin; Z90.710 Acquired absence of both cervix and uterus; Z79.01 Long term (current) use of anticoagulants
CPT/HCPCS: 36415; 71045; 76536; 78070; 80053; 82962; 84165; 85025; 85027; 85610; 86334; A9500; J1040; J1815; J2185; J3490; J7030; 97116; 97530; 97535